=== PATIENT | male | born 1985 | race Caucasian/White ===

== ENCOUNTER 2018-07-15 19:53 | Emergency (ER) | payer OTHER ==
[~2018-07-15] VITALS: Ht 182.9 cm; Wt 65.8 kg
[2018-07-15] MEDS ORDERED: LIDOCAINE HCL 1% 20 ML VIAL ONE (20:36)
[2018-07-15] MEDS ORDERED: CEFTRIAXONE 1 G VIAL ONE (20:37)
[2018-07-15] MEDS ORDERED: HYDROMORPHONE 1 MG/1 ML DISP.SYRIN ONE (20:37)
[2018-07-15] MEDS ORDERED: ONDANSETRON 4 MG/2 ML VIAL ONE (20:37)
[2018-07-15] MEDS ORDERED: ONDANSETRON 4 MG/2 ML VIAL IM ONE (20:45)
[2018-07-15] MEDS ORDERED: HYDROMORPHONE 1 MG/1 ML DISP.SYRIN IM ONE (20:45)
[2018-07-15] MEDS ORDERED: CEFTRIAXONE 1 G VIAL IM ONE (20:45)
--- NOTE | 2018-07-15 20:56 | NUR ---
Patient discharged to home in stable conditon. Written and verbal after care instructions given. Patient verbalizes understanding of instructions.
== END 2018-07-15 20:57 | disposition home or self-care (01) ==
LOC: ER 19:53
DX: J32.9 Chronic sinusitis, unspecified (principal); F12.10 Cannabis abuse, uncomplicated
CPT/HCPCS: 96372; 99283; J0696; J3490; A4663; J1170; J2405